=== PATIENT | female | born 1995 | race Caucasian/White ===

== ENCOUNTER 2017-07-19 10:37 | Inpatient (IN) | payer OTHER ==
[~2017-07-19] VITALS: Ht 154.9 cm; Wt 40.8 kg
[2017-07-19 11:15] VITALS: BP 118/65
--- NOTE | 2017-07-19 11:15 | NUR ---
Pre-admission Note: Client is seen in intake at this time. Alert and oriented x 4. Verbally responsive. She is tearful and verbalizes "I don't feel good!" She is coherent and able to answer questions appropriately regarding the admission process and drug use history. Client is also being seen by Dr. Edge at this time. Reports that she is here to get clean from heroin. She denies any allergies. Reports history of seizure, patient states "I don't remember when, it was a long time ago." Verbalizes complains of abdominal cramping, nausea, dry heaving and reports x 2 episodes of emesis prior to coming in. She also complains of chills, anxiety, and sweats. Patient suddenly laid down on the floor rolling. No changes in LOC noted. Patient states "I just need a bed, I feel sick." Immediately assisted patient back to sitting position while MD is present in the room. Per MD, patient is able to come up to the unit a this time. COWS 17. VS: BP 118/65, MD 85, Temp 98.1, O2 sat at 98%, PL 5/10.
[2017-07-19] MEDS ORDERED: LORAZEPAM 1 MG TABLET PO PRN (11:30)
[2017-07-19] MEDS ORDERED: ONDANSETRON 4 MG/2 ML VIAL IM PRN (11:30)
[2017-07-19] MEDS ORDERED: CLONIDINE HCL 0.1 MG TABLET PO PRN (11:30)
[2017-07-19] MEDS ORDERED: LOPERAMIDE HCL 2 MG CAPSULE PO PRN ×2 (11:30)
[2017-07-19] MEDS ORDERED: diphenhydrAMINE 50 MG CAPSULE PO PRN (11:30)
[2017-07-19] MEDS ORDERED: ACETAMINOPHEN 325 MG TABLET PO PRN (11:30)
[2017-07-19] MEDS ORDERED: MIRALAX 17 GM POWD.PACK PO PRN (11:30)
[2017-07-19] MEDS ORDERED: DICYCLOMINE HCL 20 MG TABLET PO PRN (11:30)
[2017-07-19] MEDS ORDERED: BUPRENORPHINE HCL 2 MG TAB.SUBL SL PRN (11:30)
[2017-07-19] MEDS ORDERED: MAG HYDROX/AL HYDROX/SIMETH 30 ML LIQUID UDC PO PRN (11:30)
--- NOTE | 2017-07-19 11:30 | NUR ---
Admission Note: Admitted a 21 year old female under the care of Dr. Ashish Edge for medically supervised withdrawal and detoxification from opiates. Patient is alert and oriented x 4. Verbally responsive. Appears anxious, tearful, withdrawn and worried. Explained and reassured patient of the unit's policies and procedures. Patient verbalized good understanding. Respirations even and unlabored. No SOB noted. Skin warm and moist to touch. Body search done. No contraband was found. Skin check done. No skin breakdown noted. No abnormal lesions and rashes noted. Complains of abdominal cramps, nausea and vomiting. Denies any constipation or diarrhea. BS (+) in all 4 quadrants. Voids independently. Placed on room restriction due to inability to provide urine for UDS. She reports NKA. Wishes to be FULL CODE. Follows a regular diet at home. Patient states that she is currently unemployed and lives with her boyfriend. She denies any history of abuse and denies any family history of substance abuse. She also denies having a PCP at this time. Reports past medical hx of anxiety, depression, and migraine headache. She verbalizes that she has overdosed on heroin in the past and has had a seizure due to withdrawals, however does not remember when. She is a current every day smoker and plans to continues smoking. Smoking cessation education was provided. Substance Use: 1. Heroin - since 14 years old. Smoked 0.5 grams daily for the past 2 weeks. Last use was on 07/19/2017 at 2100. Treatment History 1. [facility] in [place] x 5 days in 2016 2. [facility] x 11 months since 07/2016 MD entered in admission orders. Orders noted and carried out. Safety precautions in place. Call light in reach. Explained unit's policy and protocols. Patient verbalized understanding. Siderails up when in bed. Will continue to monitor closely.
[2017-07-19 12:00] VITALS: BP 120/71
[2017-07-19 12:42] LABS: BASOPHILS % (AUTO) 0.5 % (0.0-2.0); EOSINOPHILS % (AUTO) 0.5 % (0.0-7.0); HEMATOCRIT 34.7 % (37-47); HEMOGLOBIN 11.5 G/DL (12.0-16.0); LYMPHOCYTES # (AUTO) 1.2 K/UL (0.8-4.8); LYMPHOCYTES % (AUTO) 12.7 % (20.5-51.5); MEAN CORPUSCULAR HEMOGLOBIN 32.3 UUG (27.0-31.0); MEAN CORPUSCULAR HGB CONC 33 g/dL (32.0-37.0); MEAN CORPUSCULAR VOLUME 97.6 FL (81.0-99.0); MONOCYTES # (AUTO) 0.3 K/UL (0.1-1.30); MONOCYTES % (AUTO) 3.8 % (0.0-11.0); NEUTROPHILS # (AUTO) 7.7 K/UL (1.8-8.9); NEUTROPHILS % (AUTO) 82.5 % (38.5-71.5); PLATELET COUNT (AUTO) 301 K/UL (150-450); RED BLOOD CELL COUNT(AUTO) 3.56 MIL/UL (4.2-5.4); WHITE BLOOD COUNT (AUTO) 9.2 K/UL (4.0-11.2)
[2017-07-19 12:51] LABS: ETHANOL < 3 MG/DL (0-0)
[2017-07-19] MEDS ORDERED: TOPI50TA PO (12:51)
[2017-07-19] MEDS ORDERED: GABA-534 PO (12:51)
[2017-07-19 12:52] LABS: ALANINE AMINOTRANSFERASE 17 U/L (14-59); ALKALINE PHOSPHATASE 45 U/L (50-136); ASPARTATE AMINOTRANSFERASE 15 U/L (15-37); BILIRUBIN,TOTAL 0.9 mg/dL (0.2-1.0); CARBON DIOXIDE 27 mmol/L (21-32); CHLORIDE 104 mmol/L (98-107); CREATININE 0.7 mg/dL (0.6-1.3); GLUCOSE 115 mg/dL (74-106); MAGNESIUM 1.7 mg/dL (1.8-2.4); UREA NITROGEN, BLOOD 16 mg/dL (7-18)
[2017-07-19] MEDS ORDERED: TRAZ-147 PO (12:53)
[2017-07-19] MEDS ORDERED: MAGNESIUM OXIDE 400 MG TABLET PO ONE ×2 (13:00→21:00)
--- NOTE | 2017-07-19 14:45 | NUR ---
Patient rounds: Patient is in her room. Continues to be on room restriction due to unable to provide urine for UDS. Seen laying in bed with eyes closed. Chest movement noted. RR 14. Patient refuses to be woken up at this time. Will continue to monitor.
[2017-07-19 14:49] LABS: *URINE HCG, QUAL NEGATIVE (NEGATIVE)
[2017-07-19 15:23] LABS: *AMPHETAMINE, URINE NEGATIVE (NEGATIVE); *BARBITURATE, URINE NEGATIVE (NEGATIVE); *CANNABINOID, URINE POSITIVE (NEGATIVE); *COCCAINE, URINE NEGATIVE (NEGATIVE); *OPIATE, URINE POSITIVE (NEGATIVE); *PHENCYCLIDINE SCREEN,URINE NEGATIVE (NEGATIVE)
[2017-07-19 16:00] VITALS: BP 116/75
--- NOTE | 2017-07-19 16:00 | NUR ---
COWS Deferred/Off room restriction: Patient is seen laying in her room. Refuses to be woken up. Breathing even and unlabored. Off room restriction due to patient was able to provide urine for UDS and HCg. Awaiting for results. Addendum: 07/19/17 at 1621 by SHAR TATE LVN Amended: Links added.
[2017-07-19] MEDS: METHOCARBAMOL 750 MG TABLET PO PRN (16:41)
[2017-07-19] MEDS: ONDANSETRON ODT 4 MG TAB.RAPDIS SL PRN (16:42)
--- NOTE | 2017-07-19 16:42 | NUR ---
PRN Clonidine 0.1mg/Zofran 4 mg ODT/Bentyl 20 mg/Robaxin 750 mg PO given: COWS 17, patient noted with anxiety, agitation, chills, hot flashes, complains of nausea, stomach cramps, dry heaving, muscle aches and pains, sweating. Seen patient in bed crying and verbalizing "I'm sick, I need meds." Offered Subutex 4 mg SL but patient strongly refused. Stating "I don't want Subutex, I don't want to be sick yet!" Patient education provided and encouraged to take Subutex but patient still strongly refuses. Medicated patient with Clonidine, Zofran, Bentyl, and Robaxin as ordered. Will monitor for effectiveness.
--- NOTE | 2017-07-19 17:42 | NUR ---
Re-assessment: Per patient, PRN Clonidine, Zofran, Robaxin and Bentyl were effective in reducing patient's chills, hot flashes, anxiety, abdominal cramps, muscle aches and nausea.
--- NOTE | 2017-07-19 19:12 | NUR ---
End of Shift Notes: Patient continues to be on PRNs at this time to manage symptoms related to opiate withdrawal. VS monitored closely. No significant abnormalities noted. Withdrawal symptoms were closely monitored. Initial COWS 17, patient presented with anxiety, nausea, vomiting, chills, sweats, hot flashes and muscle aches. Oral fluids encouraged. Unable to participate in group and activities due to her withdrawal symptoms. Medicated patient with Clonidine, Robaxin, Zofran and Bentyl as ordered with help. Refused PRN Subutex that was offered despite encouragement to take. All needs met and attended. Will continue to monitor closely.
--- NOTE | 2017-07-19 19:15 | NUR ---
START OF SHIFT Received 21 year old female patient admitted on 07/19/17 for opiate dependency. Pt is full code with NKA. She reports a PMHx of anxiety, depression, migraine headache and seizure d/t withdrawal but unable to recall when. She reports using Heroin 0.5 gram (smoke) daily for 2 weeks. Last dose was 0.5 gram on 07/18/17. Per endorsement, pt received PRN clonidine, Zofran and Bentyl. Pt currently not on taper but has PRN medications available. Pt is alert and oriented x4, breathing is even and unlabored. Safety measures in place. Will continue to monitor.
[2017-07-19 20:02] VITALS: BP 95/55
[2017-07-19] MEDS: GABAPENTIN 300 MG CAPSULE PO SCH (21:00)
[2017-07-19] MEDS: IBUPROFEN 600 MG TABLET PO PRN (21:03)
--- NOTE | 2017-07-19 21:03 | NUR ---
PRN ATIVAN/MOTRIN Pt observed with increased anxiety, agitation and restlessness. CIWA:9. Pt also complains of tooth pain /10. PRN Ativan and Motrin administered as ordered. Breathing even and unlabored. Safety measures in place. Will monitor effectiveness.
--- NOTE | 2017-07-19 22:03 | NUR ---
PRN ATIVAN/MOTRIN PRN medications effective. Pt lying in bed with eyes closed noted to be asleep. Respirations 16, breathing even and unlabored. Safety measures in place. Will monitor.
[2017-07-20] VITALS: BP 105/53
--- NOTE | 2017-07-20 | NUR ---
COWS DEFERRED Pt lying in bed with eyes closed noted to be asleep. Respirations 16, breathing is even and unlabored. Safety measures in place. Will continue to monitor.
[2017-07-20 04:00] VITALS: BP 103/64
--- NOTE | 2017-07-20 04:00 | NUR ---
COWS DEFERRED 0400 COWS deferred d/t pt lying in bed with eyes closed noted to be asleep. Respirations 16, breathing is even and unlabored. Safety measures in place. Will continue to monitor.
--- NOTE | 2017-07-20 07:17 | NUR ---
END OF SHIFT Pt is a 21 year old female patient admitted on 07/19/17 for opiate dependency. Pt is full code with NKA. She reports a PMHx of anxiety, depression, migraine headache and seizure d/t withdrawal but unable to recall when. Pt currently not on a taper but has PRN medications available. At 2103 she received PRN Ativan and Motrin. She slept a total of 7hrs, Intake: 1180mL, Void: x2, BM:0, COWS:11. Pt remains alert and oriented x4, breathing is even and unlabored. Safety measures in place. Endorsed to oncoming shift.
[2017-07-20 08:00] VITALS: BP 90/60
[2017-07-20 08:10] LABS: HEPATITIS B SURFACE AG Negative (Negative)
--- NOTE | 2017-07-20 08:15 | NUR ---
START OF SHIFT: RECEIVED PT A/O X 4 AND SOBBING. PT STATES SHE FEELS TERRIBLE WITH BODY PAIN ,IRRITABILITY,ANXIETY,RESTLESSNESS AND POOR APPETITE. COWS 16. PRN SUBUTEX GIVEN. WILL MONITOR EFFECTIVENESS OF MEDICATION. ENCOURAGED INCREASED FLUIDS AND REST. PPD PLANTED TO [facility]. WILL CONTINUE TO MONITOR AND OFFER SUPPORT.
--- NOTE | 2017-07-20 08:45 | NUR ---
PRN SUBUTEX EFFECTIVE. PT STATES IT WAS EFFECTIVE. COWS WENT FROM 16 TO 6. WILL CONTINUE TO MONITOR AND OFFER SUPPORT.
[2017-07-20] MEDS: GABAPENTIN 300 MG CAPSULE PO SCH ×2 (08:53→20:09)
[2017-07-20] MEDS: MULTIVITAMINS,THERAPEUTIC TABLET PO SCH (08:53)
[2017-07-20] MEDS: IBUPROFEN 600 MG TABLET PO PRN ×2 (08:53→17:38)
[2017-07-20] MEDS: DOCUSATE SODIUM 250 MG CAPSULE PO SCH (08:53)
[2017-07-20] MEDS: TOPIRAMATE 25 MG TABLET PO SCH (08:53)
[2017-07-20] MEDS ORDERED: TUBERCULIN,PURIF.PROT.DERIV. 5 TU/0.1 ML TEST ID ONE (09:00)
--- NOTE | 2017-07-20 11:45 | NUR ---
SUBUTEX TAPER TO START PER .
[2017-07-20 12:00] VITALS: BP 113/60
[2017-07-20] MEDS: BUPRENORPHINE HCL 2 MG TAB.SUBL SL SCH ×2 (15:00→20:15)
[2017-07-20] MEDS: DICYCLOMINE HCL 20 MG TABLET PO SCH ×2 (15:00→20:08)
[2017-07-20 16:00] VITALS: BP_SYST 103; BP_SYST 99; BP_DIAS 58; BP_DIAS 66
--- NOTE | 2017-07-20 16:00 | NUR ---
1600 COWS DEFERRED. PT IS ASLEEP. 1500 MEDS HELD.
--- NOTE | 2017-07-20 16:02 | NUR ---
Therapist prompted client about group times. Client stated she is not attending groups today because she does not feel well.
[2017-07-20] MEDS: HYDROXYZINE PAMOATE 25 MG CAPSULE PO PRN (17:38)
[2017-07-20] MEDS: METHOCARBAMOL 750 MG TABLET PO PRN (17:38)
--- NOTE | 2017-07-20 17:44 | NUR ---
PRN ROBAXIN,VISTARIL AND MOTRIN GIVEN FOR REPORTED BODY ACHES,MUSCLE CRAMPS AND ANXIETY. WILL MONITOR EFFECTIVENESS.
--- NOTE | 2017-07-20 18:41 | NUR ---
PT STATES PRN MEDS WERE EFFECTIVE AND ANXIETY AND BODY ACHES HAVE LESSENED
--- NOTE | 2017-07-20 18:43 | NUR ---
END OF SHIFT; PT STARTED MODIFIED SUBUTEX TAPER TODAY. LAST COWS DEFERRED WAS SLEEPING AND 1500 MEDS HELD. LAST COWS 5 AT NOON THE SUBUTEX WAS EFFECTIVE IN REDUCING S/S OF W/D. PRN VISTARIL,MOTRIN AND ROBAXIN GIVEN TO MANAGE S/S OF W/D THIS AFTERNOON AND EFFECTIVE. SHE SLEPT ON AND OFF TODAY. PPD PLANTED TO [facility] THIS AM. WILL PASS SHIFT REPORT TO ONCOMING NIGHT NURSE.
--- NOTE | 2017-07-20 19:45 | NUR ---
START OF SHIFT Received report from day shift nurse. Pt is lying in bed watching TV. She is a 21 yo female admitted to [facility] on 07/19 for opiate dependence. She is A&O x4 and ambulatory. NKA, full code status, and on a regular diet. She has a PMH of migraine headaches, w/d related seizure but unable to recall when, anxiety, and depression. On admission pt admitted to using heroin 0.5 grams per day for the past 2 weeks. Upon assessment pt reports chills, nausea, stomach cramps, and headache. Taper due tonight. Fall and seizure precautions in place. Bed is down with call light in reach.
[2017-07-20 20:00] VITALS: BP 114/77
[2017-07-20] MEDS: ONDANSETRON ODT 4 MG TAB.RAPDIS SL PRN (20:06)
[2017-07-20] MEDS: CLONIDINE HCL 0.1 MG TABLET PO SCH (20:09)
--- NOTE | 2017-07-20 20:10 | NUR ---
PRN Zofran and Tylenol Pt reports nausea and headache. PRN Zofran and Tylenol administered.
--- NOTE | 2017-07-20 21:10 | NUR ---
PRN Zofran and Tylenol PRN Zofran and Tylenol effective. Pt reports nausea and headache are relieved.
[2017-07-21] VITALS (7 sets, daily range): BP systolic 94–125; BP diastolic 47–77
[2017-07-21] MEDS: TRAZODONE 100 MG TABLET PO PRN ×2 (01:48→22:21)
--- NOTE | 2017-07-21 01:50 | NUR ---
PRN Trazodone Pt reports inability to sleep. PRN Trazodone administered.
--- NOTE | 2017-07-21 02:50 | NUR ---
PRN Trazodone reassessment PRN Trazodone effective. Pt is lying in bed resting with eyes closed. Respirations even and unlabored. Safety measures in place.
--- NOTE | 2017-07-21 04:00 | NUR ---
0400 COWS deferred COWS ordered Q4H while awake. Pt is lying in bed resting with eyes closed. Vital signs obtained. Safety measures in place.
--- NOTE | 2017-07-21 07:15 | NUR ---
END OF SHIFT Report provided to day shift nurse. Pt is lying in bed resting. She is a 21 yo female admitted to [facility] on 07/19 for opiate dependence. She is A&O and ambulatory. NKA, full code status, and on a regular diet. She has a PMH of migraine headaches, w/d related seizure but unable to recall when, anxiety, and depression. On admission pt reported using heroin 0.5 grams per day for the past 2 weeks. She is ordered a modified Subutex taper. PRN Zofran, Tylenol, and Trazodone administered. Last COWS 3. She drank 796mL and slept for 8 hours. Fall and seizure precautions in place. Bed is down with call light in reach.
--- NOTE | 2017-07-21 08:05 | NUR ---
START OF SHIFT: RECEIVED PT A/O X4. SHE C/O GENERALIZED BODY ACHES,ANXIETY,CHILLS AND SWEATS. MODIFIED SUBUTEX TAPER IN PROGRESS TO MANAGE S/S OF W/D. COWS 8. PT STATES SHE WILL ATTEND GROUPS TODAY. ENCOURAGED INCREASED FLUIDS TO ASSIST IN FACILITATING DETOX PROCESS. WILL CONTINUE TO MONITOR AND OFFER SUPPORT.
[2017-07-21] MEDS: CLONIDINE HCL 0.1 MG TABLET PO SCH ×3 (09:00→21:23)
[2017-07-21] MEDS: DULOXETINE 60 MG CAPSULE.DR PO SCH (09:12)
[2017-07-21] MEDS: BUPRENORPHINE HCL 2 MG TAB.SUBL SL SCH ×3 (09:12→21:23)
[2017-07-21] MEDS: GABAPENTIN 300 MG CAPSULE PO SCH ×2 (09:12→21:23)
[2017-07-21] MEDS: DICYCLOMINE HCL 20 MG TABLET PO SCH ×3 (09:13→21:22)
[2017-07-21] MEDS: TOPIRAMATE 25 MG TABLET PO SCH (09:13)
[2017-07-21] MEDS: MULTIVITAMINS,THERAPEUTIC TABLET PO SCH (09:13)
[2017-07-21] MEDS: DOCUSATE SODIUM 250 MG CAPSULE PO SCH (09:13)
--- NOTE | 2017-07-21 11:35 | NUR ---
Therapist prompted client about group times. Client stated she would attend all groups today.
[2017-07-21] MEDS ORDERED: KETOROLAC TROMETHAMINE 30 MG INJ IM PRN (14:15)
[2017-07-21] MEDS: BACLOFEN 10 MG TABLET PO SCH ×2 (16:32→21:23)
--- NOTE | 2017-07-21 18:49 | NUR ---
END OF SHIFT: PT CONTINUES ON MODIFIED SUBUTEX TAPER. LAST COWS 4. SHE ATTENDED GROUPS AND INTERACTS WITH PEERS. SHE DID NOT ASK FOR PRNS AND STATES THE DETOX MEDS ARE EFFECTIVE. WILL PASS SHIFT REPORT TO ONCOMING NIGHT NURSE.
--- NOTE | 2017-07-21 20:05 | NUR ---
START OF SHIFT Received report from day shift nurse. Pt attended a group meeting and returned to her room after. She is a 21 yo female admitted to [facility] on 07/19 for opiate dependence. She is A&O x4 and ambulatory. NKA, full code status, and on a regular diet. Pt has a PMH of migraine headaches, w/d related seizure but unable to recall when, anxiety, and depression. On admission pt admitted to using heroin 0.5 grams per day for the past 2 weeks. She reports hot flashes, body aches, tooth ache, and anxiety. Taper due tonight. Fall and seizure precautions in place. Bed is down with call light in reach.
[2017-07-21] MEDS: IBUPROFEN 600 MG TABLET PO PRN (21:23)
--- NOTE | 2017-07-21 21:24 | NUR ---
PRN Motrin Pt reports tooth ache 03/30. PRN Motrin administered.
--- NOTE | 2017-07-21 22:23 | NUR ---
PRN Trazodone Pt reports inability to sleep. PRN Trazodone administered.
--- NOTE | 2017-07-21 22:24 | NUR ---
PRN Motrin reassessment PRN Motrin effective. Pt reports tooth ache is relieved.
--- NOTE | 2017-07-22 | NUR ---
0000 vitals refused/COWS deferred Pt refused to be woken for 0000 Vitals. She is lying in bed resting with eyes closed. Respirations even and unlabored. COWS ordered Q4HWA. Safety measures in place.
--- NOTE | 2017-07-22 04:00 | NUR ---
0400 Vitals refused/COWS deferred Pt refused to be woken for 0400 Vitals. She is lying in bed resting with eyes closed. Respirations even and unlabored. COWS ordered Q4HWA. Safety measures in place.
--- NOTE | 2017-07-22 07:10 | NUR ---
END OF SHIFT Report provided to day shift nurse. Pt is lying in bed resting. She is a 21 yo female admitted to [facility] on 07/19 for opiate dependence. Pt is A&O x4 and ambulatory. NKA, full code status, and on a regular diet. Pt has a PMH of migraine headaches, w/d related seizure but unable to recall when, anxiety, and depression. Upon admission pt reported using heroin 0.5 grams per day for the past 2 weeks. PRN Motrin administered and effective for tooth ache. Last COWS was 4. She drank 1000mL and slept for 7 hours. Fall and seizure precautions in place. Bed is down with call light in reach.
--- NOTE | 2017-07-22 07:34 | NUR ---
BEGINNING OF SHIFT Patient endorsement report received from manufacturing shift supervisor nurse, all pertinent information discussed. Patient is a 21 year old female, with admitting Dx: Opiate dependence. Patient admitted 07/19/2017, currently with ongoing taper of subutex, well tolerated, no ASE noted, taper well tolerated, patient will continue under close observation. Patient received PRN: Motrin as ordered, effective as per manufacturing shift supervisor. Patient slept for 7 hours. Patient with last cow score of: 4. Patient received in bed with eyes closed, respirations are even and unlabored, responsive to verbal stimuli, educated patient regarding plan of care for the day and medication regimen . Patient Safety measures in place. call light kept with in reach, will continue to monitor closely. safety measures in place.
[2017-07-22 08:42] VITALS: BP 102/66
[2017-07-22] MEDS: DULOXETINE 60 MG CAPSULE.DR PO SCH (08:43)
[2017-07-22] MEDS: DICYCLOMINE HCL 20 MG TABLET PO SCH ×3 (08:44→21:14)
[2017-07-22] MEDS: DOCUSATE SODIUM 250 MG CAPSULE PO SCH (08:44)
[2017-07-22] MEDS: BACLOFEN 10 MG TABLET PO SCH (08:44)
[2017-07-22] MEDS: TOPIRAMATE 25 MG TABLET PO SCH (08:44)
[2017-07-22] MEDS: MULTIVITAMINS,THERAPEUTIC TABLET PO SCH (08:44)
[2017-07-22] MEDS: GABAPENTIN 300 MG CAPSULE PO SCH ×2 (08:44→21:14)
[2017-07-22] MEDS: CLONIDINE HCL 0.1 MG TABLET PO SCH ×3 (08:46→21:14)
[2017-07-22] MEDS ORDERED: BUPRENORPHINE HCL 2 MG TAB.SUBL SL SCH ×2 (09:00→21:15)
--- NOTE | 2017-07-22 11:10 | NUR ---
Therapist prompted client about group times. Client stated she would attend all groups today.
[2017-07-22] MEDS: HYDROXYZINE PAMOATE 25 MG CAPSULE PO PRN (11:55)
--- NOTE | 2017-07-22 11:55 | NUR ---
PRN VISTARIL patient c/o increase anxiety, provided with non pharmacological interventions with no relief, administered Vistaril as ordered, will monitor effectiveness of medication.
--- NOTE | 2017-07-22 12:55 | NUR ---
VISTARIL REASSESSMENT Patient reports feeling less anxious, medication effective, will continue to monitor.
[2017-07-22 13:51] VITALS: BP 112/63
[2017-07-22 14:40] VITALS: BP 118/72
[2017-07-22] MEDS: BACLOFEN 20 MG TABLET PO SCH ×2 (14:40→21:14)
[2017-07-22 17:00] VITALS: BP 123/74
[2017-07-22] MEDS ORDERED: HYDR-3895 PO (18:35)
[2017-07-22] MEDS ORDERED: BACL20TA PO (18:35)
[2017-07-22] MEDS ORDERED: DICY20TA28 PO (18:35)
[2017-07-22] MEDS ORDERED: IBUP-1955 PO (18:35)
[2017-07-22] MEDS ORDERED: CLON0.1T14 PO (18:35)
[2017-07-22] MEDS ORDERED: DULO60CA45 PO (18:35)
[2017-07-22] MEDS ORDERED: GABA-534 PO (18:35)
[2017-07-22] MEDS ORDERED: TOPI25TA PO (18:35)
[2017-07-22] MEDS ORDERED: FAMO20TA8 PO (18:35)
--- NOTE | 2017-07-22 19:09 | NUR ---
END OF SHIFT Patient alert and oriented x4, vital signs stable during shift. Patient compliant with therapeutic plan of care. Patient with admitting Dx: opiate dependence. Patient completed Subutex taper as ordered, well tolerated, no ASE noted. Patient is scheduled to be discharged tomorrow, noted self motivated towards sobriety. Patient denies any SI/HI. 0900 assessment patient presented with: restlessness, mild bone and joint aches, tremors that can be felt but not seen, and mild anxiety with cow score of: 4; 1300 assessment patient presented with: tremors that can be felt but not seen, and mild anxiety with cow score of: 2; 1700 assessment patient presented with: tremors that can be felt but not seen, and mild anxiety with cow score of: 2. Encouraged to attend group therapies/sessions to learn new coping skills to prevent relapse, Patient noted attending and participating. Encouraged adequate PO fluid intake as tolerated. Safety measures in place. Call light kept with in reach. All needs met and rendered. Patient endorsed to clinical massage therapist nurse, all pertinent information discussed.
--- NOTE | 2017-07-22 19:50 | NUR ---
START OF SHIFT Received report from day shift nurse. Pt is lying in bed resting. She is a 21 yo female admitted to [facility] on 07/19 for opiate dependence. She is A&O x4 and ambulatory. NKA, full code status, and on a regular diet. Pt has a PMH of migraine headaches, w/d related seizure but unable to recall when, anxiety, and depression. On admission pt admitted to using heroin 0.5 grams per day for the past 2 weeks. Pt reports nasal stuffiness, anxiety, stomach cramps, and body aches. Her discharge has been rescheduled and is no longer for tomorrow. Subutex orders will be clarified with . Fall and seizure precautions in place. Bed is down with call light in reach.
[2017-07-22 20:00] VITALS: BP 116/71
--- NOTE | 2017-07-22 21:20 | NUR ---
MD Communication Pt's discharged date was changed but Subutex taper was discontinued. Contacted Dr Edge with new orders received.
[2017-07-22] MEDS ORDERED: BUPRENORPHINE HCL 2 MG TAB.SUBL SL ONE (21:21)
--- NOTE | 2017-07-22 21:21 | NUR ---
PRN Subutex Pt c/o chills, body aches, nasal stuffiness, and anxiety. COWS 8. PRN Subutex administered.
--- NOTE | 2017-07-22 22:21 | NUR ---
PRN Subutex reassessment PRN Subutex effective. Pt is lying in bed resting with eyes closed. Respirations even and unlabored. Safety measures in place.
--- NOTE | 2017-07-23 | NUR ---
0000 Vitals refused/COWS deferred Pt refused to be woken for 0000 vitals. She is lying in bed resting with eyes closed. Respirations even and unlabored. COWS ordered Q4HWA. Safety measures in place.
--- NOTE | 2017-07-23 07:19 | NUR ---
START OF SHIFT Received report from day shift nurse. Pt is lying in bed resting. She is a 21 yo female admitted to [facility] on 07/19 for opiate dependence. She is A&O x4 and ambulatory. NKA, full code status, and on a regular diet. Pt has a PMH of migraine headaches, w/d related seizure but unable to recall when, anxiety, and depression. On admission pt admitted to using heroin 0.5 grams per day for the past 2 weeks. Pt reports nasal stuffiness, anxiety, stomach cramps, and body aches. Pt's discharge date was changed. New PRN Subutex orders placed by Dr. Edge with one dose administered before bed. No other PRN's given. Last COWS was 8 prior to PRN Subutex administration and she slept after. Pt drank 250mL and slept for 9 hours. Fall and seizure precautions in place. Bed is down with call light in reach.
[2017-07-23 08:00] VITALS: BP 110/70
--- NOTE | 2017-07-23 08:15 | NUR ---
START OF SHIFT: RECEIVED PT A/O X4. SHE C/O GENERALIZED BODY ACHES,AND STOMACH CRAMPS. PRN SUBUTEX GIVEN FOR COWS 8. PT STATES SHE IS ATTENDING GROUPS .WILL MONITOR EFFECTIVENESS OF PRN MED. ENCOURAGED INCREASED FLUIDS TO ASSIST IN FACILITATING DETOX PROCESS. WILL CONTINUE TO MONITOR AND OFFER SUPPORT.
[2017-07-23] MEDS ORDERED: BUPRENORPHINE HCL 2 MG TAB.SUBL SL PRN ×2 (08:32→14:15)
--- NOTE | 2017-07-23 08:45 | NUR ---
PRN SUBUTEX EFFECTIVE. COWS 4. WILL CONTINUE TO MONITOR.
[2017-07-23] MEDS: BACLOFEN 20 MG TABLET PO SCH ×3 (09:08→20:19)
[2017-07-23] MEDS: CLONIDINE HCL 0.1 MG TABLET PO SCH ×4 (09:08→20:19)
[2017-07-23] MEDS: TOPIRAMATE 25 MG TABLET PO SCH (09:08)
[2017-07-23] MEDS: DOCUSATE SODIUM 250 MG CAPSULE PO SCH (09:09)
[2017-07-23] MEDS: DICYCLOMINE HCL 20 MG TABLET PO SCH ×3 (09:10→20:19)
[2017-07-23] MEDS: DULOXETINE 60 MG CAPSULE.DR PO SCH (09:10)
[2017-07-23] MEDS: FAMOTIDINE 20 MG TABLET PO SCH (09:10)
[2017-07-23] MEDS: GABAPENTIN 300 MG CAPSULE PO SCH ×2 (09:10→20:19)
[2017-07-23] MEDS: MULTIVITAMINS,THERAPEUTIC TABLET PO SCH (09:11)
--- NOTE | 2017-07-23 11:32 | NUR ---
ENDORSED CARE OF PT TO STAFF NURSE
--- NOTE | 2017-07-23 11:33 | NUR ---
Pt report SBAR report rcv'd. Will continue to monitor the pt.
[2017-07-23 12:30] VITALS: BP 90/43
--- NOTE | 2017-07-23 15:00 | NUR ---
Medication held Held 1500 clonidine d/t decreased DBP of 40.
[2017-07-23 15:03] VITALS: BP_SYST 112; BP_DIAS 40; BP_DIAS 60
[2017-07-23 16:00] VITALS: BP 107/68
--- NOTE | 2017-07-23 19:11 | NUR ---
End of shift note Pt was admitted for opiate dependence. Pt has a PMHx of anxiety, depression, migraines and withdrawal induced seizures. Pt is a full code, on a regular diet and denies any allergies. Pt has completed a custom subutex taper without any s/s of withdrawal. Pt did not require any PRN medications during the shift. Pt ate 25% of breakfast, 50% of lunch and 100% of dinner, pt drank 1710ml of fluids, had 5 voids and no BM's during the shift. Pt had a COWS and CIWA of 7 and 7 at 1600. Pt has no complaints at this time. Will endorse SBAR to oncoming shift. All needs addressed at this time.
--- NOTE | 2017-07-23 19:11 | NUR ---
START OF SHIFT NOTE: Patient endorsed by Vero outgoing day shift nurse. Report received. Patient is a 22 year old female admitted to [facility] on 07/19/17 for Opioid dependence, completed 5 Day Subutex Taper with tolerated well without ASE. Patient remains compliant with treatment, medications, and diet regime. Patient reports NKA. Patient is Full Code, Regular Diet. Patient is on Fall and Seizures Precautions. Patient reports history of Seizure due to withdrawal but "does not remember when". PMH: 1 Anxiety disorder, Migraine headache, Major depressive disorder, Chronic tobacco use. [facility] "[facility] for 11 months from 07/2016 to06/2017". Upon endorsement patient is in his Room alert and oriented x 4. Speech is soft and clear. VS: T: 98.6, BP: 105/63; HR: 74; RR:18; O2 SAT: 99%. Patient reports generalized body aches "7/10". COWS 7. Patient is anxious and agitated. Patient c/o increased anxiety, nervousness, severe body aches,tremors that can be felt, and barely sweating. Respiration s clear and even. Patient denies SOB, cough, and chest pain. Breathing Sounds are clear throughout. Bowel Sounds are active in all four quadrants. Patient denies SI/HI. Skin is intact, warm, and dry to touch. Encouraged fluids as tolerated. Encourage to attend groups activities. All needs met. Safety measures on place. Call light within reach, bed in lowest position and locked, padded rails up bilaterally. Will continue to monitor closely.
[2017-07-23 20:00] VITALS: BP 105/63
[2017-07-23] MEDS: TRAZODONE 100 MG TABLET PO PRN (21:19)
--- NOTE | 2017-07-23 21:19 | NUR ---
PRN TRAZODONE 100 MG 1 TAB PO Patient c/o insomnia. PRN Trazodone 100 mg 1 tab PO administrated with full glass of water as ordered. Patient tolerated well. All needs met. Safety measures on place. Call light within reach, bed in lowest position and locked, padded rails up bilaterally rails up bilaterally. Will continue to monitor closely.
--- NOTE | 2017-07-23 22:19 | NUR ---
RE-ASSESSMENT Patient is sleeping. Respirations even and unlabored. RR:14. PRN Trazodone PO was effective. All needs met. Safety measures on place. Call light within reach, bed in lowest position and locked, padded rails up bilaterally rails up bilaterally. Will continue to monitor closely.
[2017-07-24] VITALS: BP 98/59
[2017-07-24 04:00] VITALS: BP 105/58
--- NOTE | 2017-07-24 07:14 | NUR ---
Start of shift note SBAR report rcv'd. Pt was admitted for opiate dependence. Pt has a PMHx of anxiety, depression, migraine headaches, and withdrawal induced seizures. Pt has completed a custom subutex taper without any ASE. Pt is on observation for the management of any further withdrawal s/s. Pt is currently resting in bed, pt has no complaints at this time. Will continue to monitor pt. All needs addressed at this time.
--- NOTE | 2017-07-24 07:14 | NUR ---
END OF SHIFT NOTE: Patient endorsed to day shift nurse. Report given. Patient is a 22 year old female admitted to [facility] on 07/19/17 for Opioid dependence, completed 5 Day Subutex Taper with tolerated well without ASE. Patient remains compliant with treatment, medications, and diet regime. Patient reports NKA. Patient is Full Code, Regular Diet. Patient is on Fall and Seizures Precautions. Patient reports history of Seizure due to withdrawal but "does not remember when". PMH: Anxiety disorder, Migraine headache, Major depressive disorder, Chronic tobacco use. VS at 0400: T: 98.2, BP: 105/58; HR: 62; RR:15; O2 SAT: 98%. Patient denies pain " 0/10". COWS 4. Patient presented last night with anxiety, nervousness, body aches, tremors that can be felt, and barely sweating. Respiration s clear and even. Patient denies SOB, cough, and chest pain. Breathing Sounds are clear throughout. Bowel Sounds are active in all four quadrants. Patient denies SI/HI. Skin is intact, warm, and dry to touch. Encouraged fluids as tolerated. Encourage to attend groups activities. PRN Trazodone 100 mg 1 tab PO administrated to patient was effective. Patient slept 9 hours 15 min., intake 1,355 ml, voided x2. All needs met. Safety measures on place. Call light within reach, bed in lowest position and locked, padded rails up bilaterally.
[2017-07-24 08:00] VITALS: BP 118/69
[2017-07-24] MEDS: DICYCLOMINE HCL 20 MG TABLET PO SCH ×3 (08:27→21:04)
[2017-07-24] MEDS: DOCUSATE SODIUM 250 MG CAPSULE PO SCH (08:28)
[2017-07-24] MEDS: DULOXETINE 60 MG CAPSULE.DR PO SCH (08:28)
[2017-07-24] MEDS: CLONIDINE HCL 0.1 MG TABLET PO SCH ×2 (08:28→21:00)
[2017-07-24] MEDS: TOPIRAMATE 25 MG TABLET PO SCH (08:28)
[2017-07-24] MEDS: BACLOFEN 20 MG TABLET PO SCH ×3 (08:28→21:03)
[2017-07-24] MEDS: MULTIVITAMINS,THERAPEUTIC TABLET PO SCH (08:28)
[2017-07-24] MEDS: GABAPENTIN 300 MG CAPSULE PO SCH ×2 (08:28→21:03)
[2017-07-24] MEDS: FAMOTIDINE 20 MG TABLET PO SCH (08:29)
--- NOTE | 2017-07-24 09:30 | NUR ---
Assessment During VS pt states that she had a pain level of 9/10 generalized body aches. AM meds administered. Pt states that she currently has a pain level of 2/10 and is comfortable. Will continue to monitor pt.
[2017-07-24 12:00] VITALS: BP 94/56
[2017-07-24] MEDS ORDERED: BUPRENORPHINE HCL 2 MG TAB.SUBL SL PRN (14:45)
[2017-07-24 16:34] VITALS: BP 110/70
--- NOTE | 2017-07-24 16:35 | NUR ---
PRN administration Pt c/o increased w/d s/s. Pt has a COWS of 8, administered PRN subutex per MD order. Will continue to monitor pt.
--- NOTE | 2017-07-24 17:05 | NUR ---
Reassessment Pt states that she feels better, pt has a COWS of 4. Will continue to monitor pt.
--- NOTE | 2017-07-24 19:13 | NUR ---
End of shift note Pt was admitted for opiate dependence. Pt has a PMHx of anxiety, depression, migraine headaches, and withdrawal induced seizures. Pt has completed a custom subutex taper without any ASE. Pt continues on PRN Subutex to manage her s/s of withdrawal. Pt required one PRN dose of Subutex for her COWS of 8 with relief. Pt drank 2096ml of fluid, had 3 voids, and ate 100% of all meals. At 1600 pt had a CIWA of 1. Pt has no complaints at this time. Will endorse SBAR to oncoming shift
--- NOTE | 2017-07-24 19:30 | NUR ---
Start of shift: Received patient in the hallway, alert and oriented x4. Calm and cooperative with care. Ambulatory with steady gait. Speech is clear, normal rate and able to make known of his needs. Denies SI/HI/AVH. Admitted for opiate dependence. PMH of anxiety, depression, migraine and withdrawal induced seizures. Will continue to monitor behavior and medication effectiveness while MD titrate the medication.
[2017-07-24 21:13] VITALS: BP 97/53
[2017-07-24] MEDS: TRAZODONE 100 MG TABLET PO PRN (23:08)
[2017-07-25 00:45] VITALS: BP 91/51
--- NOTE | 2017-07-25 04:20 | NUR ---
Patient asleep. Respiration even and unlabored. 16 beats/minute. Unable to assess COWS and vital signs. Addendum: 07/25/17 at 0422 by MERLINE MONTAÑO RN Amended: Links added.
--- NOTE | 2017-07-25 06:32 | NUR ---
End of Shift notes: Patient remained calm and cooperative with care throughout shift. Administered Trazodone 100mg PRN for insomnia. Slept 5 hours. Respiration even and unlabored. No signs of distress. Alert and oriented x4. Thought process linear. Intake 973ml and voided x2. No behavior issues.
[2017-07-25 08:00] VITALS: BP 96/60
--- NOTE | 2017-07-25 08:02 | NUR ---
START OF SHIFT: RECEIVED PT A/O X 4. SHE HAS COMPLETED SUBUTEX TAPER. SHE REPORTS SOME MILD BODY ACHES AND STATES THE DETOX MEDS WERE EFFECTIVE.COWS 3 . SHE STATES SHE INTERACTS WITH PEERS AND ATTENDS GROUPS. WILL CONTINUE TO MONITOR AND OFFER SUPPORT.
[2017-07-25] MEDS: FAMOTIDINE 20 MG TABLET PO SCH (08:25)
[2017-07-25] MEDS: BACLOFEN 20 MG TABLET PO SCH ×3 (08:25→20:37)
[2017-07-25] MEDS: GABAPENTIN 300 MG CAPSULE PO SCH ×2 (08:25→20:37)
[2017-07-25] MEDS: DULOXETINE 60 MG CAPSULE.DR PO SCH (08:25)
[2017-07-25] MEDS: MULTIVITAMINS,THERAPEUTIC TABLET PO SCH (08:26)
[2017-07-25] MEDS: DICYCLOMINE HCL 20 MG TABLET PO SCH ×3 (08:26→20:37)
[2017-07-25] MEDS: DOCUSATE SODIUM 250 MG CAPSULE PO SCH (08:26)
[2017-07-25] MEDS: TOPIRAMATE 25 MG TABLET PO SCH (08:26)
[2017-07-25] MEDS: CLONIDINE HCL 0.1 MG TABLET PO SCH ×3 (08:27→20:39)
[2017-07-25 12:00] VITALS: BP 120/76
[2017-07-25] MEDS ORDERED: HYDROXYZINE PAMOATE 25 MG CAPSULE PO PRN (12:45)
[2017-07-25] MEDS: METHOCARBAMOL 750 MG TABLET PO PRN (13:20)
[2017-07-25] MEDS: IBUPROFEN 600 MG TABLET PO PRN (13:20)
[2017-07-25 16:00] VITALS: BP 110/74
--- NOTE | 2017-07-25 18:56 | NUR ---
END OF SHIFT: PT SCHEDULED FOR DISCHARGE ON 07/26 LAST COWS 2. SHE ATTENDED GROUPS AND INTERACTS WITH PEERS. MOTRIN AND ROBAXIN GIVEN AND EFFECTIVE FOR MUSCLE ACHES. SHE EXPRESSED ENTHUSIASM TOWARD RECOVERY. WILL PASS SHIFT REPORT TO ONCOMING NIGHT NURSE.
--- NOTE | 2017-07-25 18:56 | NUR ---
START OF SHIFT NOTE: Patient endorsed by day shift nurse. Report received. Patient is a 22 year old female admitted to [facility] on 07/19/17 for Opioid dependence, completed 5 Day Subutex Taper with tolerated well without ASE. Patient remains compliant with treatment, medications, and diet regime. Patient reports NKA. Patient is Full Code, Regular Diet. Patient is on Fall and Seizures Precautions. Patient reports history of Seizure r/t withdrawal but "does not remember when". PMH: Anxiety disorder, Migraine headache, Major depressive disorder, Chronic tobacco use. Upon endorsement patient is alert and oriented x 4. Speech is soft and clear. VS: T: 98.4, BP: 119/62; HR: 73; RR:16; O2 SAT: 100%. Patient c/o generalized body aches "6/10". COWS 7. Patient is anxious and agitated. Patient c/o increased anxiety, nervousness, severe body aches, insomnia, and barely sweating. Respiration s clear and even. Patient denies SOB, cough, and chest pain. Breathing Sounds are clear throughout. Bowel Sounds are active in all four quadrants. Patient denies SI/HI. Skin is intact, warm, and dry to touch. Encouraged fluids as tolerated. Encourage to attend groups activities. All needs met. Safety measures on place. Call light within reach, bed in lowest position and locked, padded rails up bilaterally. Will continue to monitor closely.
[2017-07-25 20:00] VITALS: BP 119/62
[2017-07-25] MEDS: TRAZODONE 100 MG TABLET PO PRN (21:12)
--- NOTE | 2017-07-25 22:12 | NUR ---
RE-ASSESSMENT Patient is sleeping. Respirations even and unlabored. RR:16. PRN Clonidine PO was effective. All needs met. Safety measures on place. Call light within reach, bed in lowest position and locked, padded rails up bilaterally rails up bilaterally. Will continue to monitor closely.
--- NOTE | 2017-07-25 22:15 | NUR ---
Nursing note: Assumed care from previous nurse.
--- NOTE | 2017-07-25 22:15 | NUR ---
Patient endorsed to charge nurse in stable condition. Report given. All needs met. Safety measures on place. Call light within reach, bed in lowest position and locked, padded rails up bilaterally
[2017-07-26] VITALS: BP 122/63
--- NOTE | 2017-07-26 04:00 | NUR ---
Vitals/COWS refused: Pt refused vitals and COWS assessment to be taken. Pt stated she wanted to continue sleeping as she was discharging in the morning and would like some rest. RR noted even and unlabored. No acute distress noted. Will continue to monitor.
--- NOTE | 2017-07-26 07:04 | NUR ---
End of Shift Note: Pt is 21F, admitted for Heroin dependence. Pt is AOx4 without s/s of acute distress. Pt is full code, on regular diet. Pt noted with NKA. Pt reports hx of anxiety, depression, migraine, and seizure r/t withdrawals. Pt has finished Subutex taper. Pt is compliant with plan of care. Pt slept for 7 hours. Respirations even and unlabored. Last COWS was 1. Fall precautions observed. Bed in lowest position. Side rails up x2. Call light functioning and within reach. All needs attended and met. Will endorse to day shift nurse.
--- NOTE | 2017-07-26 07:05 | NUR ---
Start of shift note SBAR report rcv'd. Pt was admitted for opiate dependence. Pt has a PMHx of anxiety, depression, migraines and withdrawal induced seizures. Pt is a full code, on a regular diet, and denies any allergies. Pt has competed a subutex taper without any ASE. Pt states that she feels ready for discharge today. Will continue to monitor pt. All needs addressed at this time.
[2017-07-26 08:00] VITALS: BP 118/71
[2017-07-26] MEDS: FAMOTIDINE 20 MG TABLET PO SCH (08:48)
[2017-07-26] MEDS: MULTIVITAMINS,THERAPEUTIC TABLET PO SCH (08:48)
[2017-07-26] MEDS: GABAPENTIN 300 MG CAPSULE PO SCH (08:48)
[2017-07-26 08:49] VITALS: BP 118/74
[2017-07-26] MEDS: DICYCLOMINE HCL 20 MG TABLET PO SCH (08:49)
[2017-07-26] MEDS: DOCUSATE SODIUM 250 MG CAPSULE PO SCH (08:49)
[2017-07-26] MEDS: DULOXETINE 60 MG CAPSULE.DR PO SCH (08:49)
[2017-07-26] MEDS: CLONIDINE HCL 0.1 MG TABLET PO SCH (08:49)
[2017-07-26] MEDS: TOPIRAMATE 25 MG TABLET PO SCH (08:49)
[2017-07-26] MEDS: BACLOFEN 20 MG TABLET PO SCH (08:49)
--- NOTE | 2017-07-26 09:10 | NUR ---
Discharge note Pt was admitted for opiate dependence. Pt has a COWS of 2, VS are WNL, pt states that she feels ready for discharge and has no complaints. Denies SI/HI. Verbalized her understanding of the discharge instructions. Pt discharge instructions, prescriptions and all belongings returned to pt. Pt ID band removed, pt ambulated off of the unit with TRIAGE RN, left facility via [facility] for [facility].
== END 2017-07-26 09:10 | disposition other institution (70) | DRG 895 ==
LOC: SRC 11:10
PROVIDERS: ADMIT Internal Medicine; ATTEND Internal Medicine
PROC: HZ2ZZZZ Detoxification Services for Substance Abuse Treatment (ICD-10-PCS; principal; 2017-07-19)
PROC: HZ31ZZZ Individual Counseling for Substance Abuse Treatment, Behavioral (ICD-10-PCS; 2017-07-21)
PROC: HZ41ZZZ Group Counseling for Substance Abuse Treatment, Behavioral (ICD-10-PCS; 2017-07-21)
DX: F11.23 Opioid dependence with withdrawal (principal); F33.2 Major depressive disorder, recurrent severe without psychotic features; F41.9 Anxiety disorder, unspecified; G43.909 Migraine, unspecified, not intractable, without status migrainosus; F13.21 Sedative, hypnotic or anxiolytic dependence, in remission; F17.210 Nicotine dependence, cigarettes, uncomplicated; D53.9 Nutritional anemia, unspecified; E83.42 Hypomagnesemia; F12.90 Cannabis use, unspecified, uncomplicated; Z81.8 Family history of other mental and behavioral disorders
CPT/HCPCS: 36415; 70030-TC; 80307; 80349; 83735; 84703; 85025; 86580; 86592; 86705; 86803; 87340; 87806; A4663; G0480; Q0162